=== PATIENT | female | born 1975 | race Two or more races ===

== ENCOUNTER 2019-03-21 02:28 | Emergency (ER) | payer BC, MEDICAID, OTHER, SELFPAY ==
[~2019-03-21] VITALS: Ht 160 cm; Wt 94.0 kg
--- NOTE | 2019-03-21 02:44 | NUR ---
AT BEDSIDE TO ASSESS PT.
[2019-03-21] MEDS ORDERED: KETOROLAC 30 MG/1 ML ONE (02:51)
[2019-03-21] MEDS ORDERED: ONDANSETRON 2MG/ML, 2ML ONE (02:51)
[2019-03-21] MEDS ORDERED: PANTOPRAZOLE 40 MG IV ONE (02:52)
[2019-03-21] MEDS ORDERED: KETOROLAC 30 MG/1 ML IVPush ONE (03:00)
[2019-03-21] MEDS ORDERED: SODIUM CHLORIDE FLUSH 10ML SYR IVF ONE (03:00)
[2019-03-21] MEDS ORDERED: ONDANSETRON 2MG/ML, 2ML IVPush ONE (03:00)
[2019-03-21] MEDS ORDERED: SODIUM CHLORIDE 0.9%, 500ML IVBOLUS ONE (03:00)
[2019-03-21] MEDS ORDERED: PANTOPRAZOLE 40 MG IV IVPush SCH (03:00)
[2019-03-21 03:11] LABS: BASOPHILS # (AUTO) 0.03 x10^3/uL (0-0.1); BASOPHILS % (AUTO) 0 % (0-1); EOSINOPHILS # (AUTO) 0.13 x10^3/uL (0-0.4); EOSINOPHILS % (AUTO) 2 % (1-7); LYMPHOCYTES # (AUTO) 2.35 x10^3/uL (1-3.4); LYMPHOCYTES % (AUTO) 30 % (22-44); MD NO; MEAN CORPUSCULAR HEMOGLOBIN 30.1 pg (27.0-34.8); MEAN CORPUSCULAR HGB CONC 33.6 g/dL (32.4-35.8); MEAN CORPUSCULAR VOLUME 89.8 fL (80-100); MEAN PLATELET VOLUME 8.4 fL (7.4-10.4); MONOCYTES # (AUTO) 0.65 x10^3/uL (0.2-0.8); MONOCYTES % (AUTO) 8 % (2-9); NEUTROPHILS # (AUTO) 4.69 x10^3/uL (1.8-6.8); NEUTROPHILS % (AUTO) 60 % (42-75); PLATELET COUNT 287 x10^3/uL (130-400); RED BLOOD COUNT 4.62 x10^6/uL (3.82-5.3); RED CELL DISTRIBUTION WIDTH 13.1 % (9.6-15.2)
--- NOTE | 2019-03-21 03:19 | NUR ---
THIS IS A 43Y F THAT COMES IN FOR ABD PAIN AND NAUSEA STARTING YESTERDAY. PT REPORTS BURNING PAIN IN LEFT QUAD. PT RESTING ON GURNEY DAUGHTER AT BEDSIDE. PT CONNECTED TO MONITORING, VSS, ROSIEN. PT MEDICATED PER MAY.
[2019-03-21 03:20] LABS: ALANINE AMINOTRANSFERASE 89 U/L (12-78); ALBUMIN 3.8 g/dL (3.4-5.0); ANION GAP 7 mmol/L (5-15); CALCIUM 9.5 mg/dL (8.5-10.1); CHLORIDE 102 mmol/L (98-107); CREATININE 0.76 mg/dL (0.55-1.02)
[2019-03-21 03:22] LABS: ALKALINE PHOSPHATASE 93 U/L (45-117); BILIRUBIN,TOTAL 0.5 mg/dL (0.2-1.0); TOTAL PROTEIN 8.8 g/dL (6.4-8.2)
--- NOTE | 2019-03-21 03:23 | NUR ---
URINE SENT TO LAB
[2019-03-21 03:32] LABS: HCG UR SG 1.028 (1.003-1.030); MICROSCOPIC NOT IND
[2019-03-21 03:35] LABS: CULTURE INDICATED? NO
[2019-03-21 04:01] VITALS: BP 127/72
--- NOTE | 2019-03-21 04:03 | NUR ---
Patient/Caregiver given discharge instructions and they have confirmed that they understand the instructions. Patient ambulatory with steady gait. iv dc prior to pt leaving facility
== END 2019-03-21 04:14 | disposition home or self-care (01) ==
LOC: ED 04:01
DX: R10.12 Left upper quadrant pain (principal); R10.13 Epigastric pain; R11.2 Nausea with vomiting, unspecified; Z90.49 Acquired absence of other specified parts of digestive tract
CPT/HCPCS: 36415; 80053; 81003; 81025; 83690; 85025; 96361; 96374; 96375; 99283; C9113; J1885; J2405; J7040